=== PATIENT | female | born 1955 | race Caucasian/White ===

== ENCOUNTER 2020-07-29 14:11 | Emergency (ER) | payer MEDICARE, SELFPAY ==
[2020-07-29] VITALS (11 sets, daily range): BP systolic 160–201; BP diastolic 84–97; PULSE 82–113; RESP 20; TEMP 36.9; O2SAT 90–99
[2020-07-29 14:38] LABS: Bacteria Urine None Seen; RBC Urine None Seen (0-5/HPF)
[2020-07-29 14:53] LABS: Appearance Urine UA CLEAR; Bilirubin Urine UA NEGATIVE (NEGATIVE); Color Urine UA YELLOW; Glucose Urine UA NEGATIVE (Negative); Ketones Urine UA NEGATIVE (NEGATIVE); Leukocyte Esterase Urine UA NEGATIVE (NEGATIVE); Nitrite Urine UA NEGATIVE (Negative); Occult Blood Urine UA NEGATIVE (Negative); Protein Urine UA NEGATIVE (Negative); Urobilinogen Urine UA 0.2 E.U./dL (0.2)
[2020-07-29 15:08] LABS: Culture Indicated Urine Cult Not Indicated; Squamous Epithelial Cell Urine 0-1 /HPF (0-5/HPF); WBC Urine 0-1/HPF (0-5/HPF)
--- NOTE | 2020-07-29 16:36 | DI.CT.S_ITS ---
PROCEDURE: CT KIDNEY URETER BLADDER (KUB) INDICATIONS: R flank pain TECHNIQUE: Noncontrast 5 mm thick sections acquired from the diaphragms to the symphysis. 5 mm thick coronal and sagittal reformats were then performed. For radiation dose reduction, the following was used: automated exposure control, adjustment of mA and/or kV according to patient size. COMPARISON: None. FINDINGS: Image quality: Excellent. Lung bases: Lung bases are clear. Heart size is normal. There is a moderate sized hiatal hernia. Urinary system: Both kidneys are normal in size. No kidney stones. No hydronephrosis or perinephric fat stranding. Both ureters appear non-dilated throughout their expected courses. Bladder wall thickness is normal; no calcified bladder stones. Other solid organs: Liver is normal in size. Gallbladder is normal. Pancreas is normal in contours. Spleen is normal in size. No adrenal nodules. Peritoneum and bowel: Unenhanced bowel loops demonstrate normal wall thickness and caliber. Scattered colonic diverticula. No CT findings to suggest acute diverticulitis. No free fluid or air. Nodes and vessels: No retroperitoneal or mesenteric adenopathy by size criteria. Aorta and inferior vena cava are normal in caliber. Abdominal wall: No ventral hernias. Pelvis: Uterus is absent. There is a calcific density projecting to the right ovary. Left ovary is unremarkable. No free pelvic fluid. No inguinal hernias or adenopathy. Bones: No suspicious bony lesions. No vertebral body compression fractures. Moderate to severe degenerative disc and facet disease in the lower thoracic and lumbar spine. There is an intra osseous hemangioma in L3. IMPRESSION: 1. No renal stone or hydronephrosis. 2. Normal appendix. 3. Moderate-sized hiatal hernia. 4. Diverticulosis without diverticulitis. 5. Moderate to severe degenerative disc and facet disease in the lower thoracic and lumbar spine. Dictated by: Enrico Cheng M.D. on 07/29/2020 at 17:17 Approved by: Enrico Cheng M.D. on 07/29/2020 at 17:23
[2020-07-29 16:53] LABS: Add Manual Diff / Slide Review NO; Basophils Absolute Auto 0 /uL (0-100); Basophils Percent Auto 0.4 % (0-2); Eosinophils Absolute Auto 0 /uL (0-450); Hematocrit 46.2 % (36-46); Hemoglobin 15.2 g/dL (12.0-16.0); Lymphocytes Absolute Auto 1000 /uL (1100-4500); Lymphocytes Percent Auto 9.1 % (25-40); Mean Corpuscular Hemoglobin 30.7 PG (26-34); Mean Corpuscular Volume 93.3 fL (80-100); Monocytes Absolute Auto 300 /uL (0-900); Monocytes Percent Auto 2.6 % (3-14); Neutrophils Absolute Auto 10100 /uL (1500-7000); Neutrophils Percent Auto 87.9 % (50-75); Platelet Count 249 X10^3/uL (150-400); Red Blood Cell Count 4.95 X10^6/uL (4.0-5.2); Red Cell Distribution Width 14.1 % (11.6-14.8); White Blood Cell Count 11.5 X10^3/uL (4.5-11.0)
[2020-07-29 17:05] LABS: Lactate (Lactic Acid) 1.8 mmol/L (0.7-2.1)
[2020-07-29 17:06] LABS: Alanine Aminotransferase 42 IU/L (<35); Albumin 4.4 g/dL (3.5-5.0); Albumin Globulin Ratio 1.3 (1.0-2.8); Alkaline Phosphatase 73 U/L (38-126); Amylase 76 U/L (30-110); Aspartate Aminotransferase 33 IU/L (14-36); BUN Creatinine Ratio 25.9 (6-22); Bilirubin Total 1.3 mg/dL (0.2-1.3); Blood Urea Nitrogen 22 mg/dL (7-17); Calcium 9.9 mg/dL (8.4-10.2); Carbon Dioxide 35 mmol/L (22-32); Chloride 94 mmol/L (98-107); Estimated Glomerular Filt Rate > 60.0 mL/min (>60); Globulin 3.4 g/dL (1.7-4.1); Glucose 137 mg/dL (80-110); HEMOLYSIS < 15 (0-50); Lipase 20 U/L (23-300); Sodium 135 mmol/L (137-145); Total Protein 7.8 g/dL (6.3-8.2)
[2020-07-29] MEDS: CYCLOBENZAPRINE 10 MG TABLET PO (17:55)
[2020-07-29] MEDS: LIDOCAINE PATCH 1 EACH ADH..PATCH TOP (17:56)
--- NOTE | 2020-07-29 20:40 | ED_ITS ---
HPI - Female Genitourinary <GABRIELE Barnett - Last Filed: 07/29/20 20:44> General Chief complaint: Urogenital-Female Stated complaint: possible UTI since today Time Seen by Provider: 07/29/20 15:49 Source: patient and family Mode of arrival: Ambulatory Limitations: no limitations History of Present Illness HPI Narrative: The patient is a 64-year-old female nonsmoker who presents with her for chief complaint of right-sided flank pain. This is similar to her previous presentation where she was found have urinary tract infection down in [place] several weeks ago. She denies any fevers nausea vomiting or diarrhea. She does complain of some urinary urgency, but no dysuria. She has slight frequency as well with also been ongoing problem for several years. She denies any abdominal pain, chest pain or shortness of breath. She has not taken anything to feel better. She is mostly concerned about her kidney function. She is also concerned about the possibility of a kidney stone. She denies any hematuria. The patient is currently being treated for giant cell arteritis, is concerned about kidney function. Related Data Previous Rx's Medication Instructions Recorded cyclobenzaprine 10 mg PO TID PRN #14 tab 07/29/20 lidocaine 1 patch TOP DAILY PRN #15 each 07/29/20 Allergies Allergy/AdvReac Type Severity Reaction Status Date / Time Cephalosporins Allergy Verified 07/29/20 14:20 Penicillins Allergy Verified 07/29/20 14:20 Review of Systems <[facility] - Last Filed: 07/29/20 20:44> Review of Systems Narrative: GENERAL: Denies chills, fatigue, malaise, fever, sweats. HEENT: Denies sinus pain, ear pain, sore throat, difficulty swallowing, dizziness. RESPIRATORY: Denies dyspnea, cough, wheezing, hemoptysis, sputum. CARDIOVASCULAR: Denies chest pain, palpitations, orthopnea, edema, GASTROINTESTINAL: see HPI : See HPI MUSCULOSKELETAL: denies weakness, joint pain, or bony pain SKIN: Denies rash, skin lesions, or other NEUROLOGIC: Denies weakness, headache, numbness, change in speech, confusion, seizures, incoordination. PSYCHIATRIC: No concerning psychosocial issues. 12 point review of systems is negative except for those stated above Patient History [facility] - Last Filed: 07/29/20 20:44> alcohol intake frequency: 0-2 drinks per day Exam <GREGG Barnett - Last Filed: 07/29/20 20:44> Narrative Exam Narrative: GENERAL: This is a well-nourished, well-developed patient, in no acute distress HEAD: Atraumatic. Normocephalic. No temporal or scalp tenderness. EYES: Pupils equal round and reactive. Extraocular motions intact. No scleral icterus. No injection or drainage. ENT: Nose without bleeding, purulent drainage or septal hematoma. Wearing a mask. Airway patent. NECK: Trachea midline. No JVD or lymphadenopathy. Supple, nontender, no meningeal signs. CARDIOVASCULAR: Regular rate and rhythm \ RESPIRATORY: Clear to auscultation. Breath sounds equal bilaterally. No wheezes, rales, or rhonchi. No cough. No increased respiratory effort. No accessory muscle use. GASTROINTESTINAL: Abdomen soft, non-tender, nondistended. No hepato- splenomegaly, or palpable masses. No guarding. EXTREMITIES: No clubbing, cyanosis, or edema. No joint tenderness, effusion, or edema noted. BACK: Nontender without deformity or crepitance. Slight flank tenderness on right side, no CVA tenderness left side NEURO: AOx3. SKIN: No rash or erythema on visible skin. No rash erythema noted on back or flank. Initial Vital Signs Initial Vital Signs: Vital Signs Temperature 98.5 F 07/29/20 14:14 Pulse Rate 83 07/29/20 14:14 Respiratory Rate 07/29/20 14:14 Blood Pressure 170/90 H 07/29/20 14:14 Pulse Oximetry 99 07/29/20 14:14 <Dasia Drummond MD - Last Filed: 07/30/20 11:02> Initial Vital Signs Initial Vital Signs: Vital Signs Temperature 98.5 F 07/29/20 14:14 Pulse Rate 83 07/29/20 14:14 Respiratory Rate 07/29/20 14:14 Blood Pressure 170/90 H 07/29/20 14:14 Pulse Oximetry 99 07/29/20 14:14 Scores <GREGG Barnett - Last Filed: 07/29/20 20:44> GCS Dionicio coma scale eye opening: Spontaneous Dionicio coma scale verbal response: Orientated Dionicio coma scale motor response: Obey commands [place] coma scale total score: 15 Course <KIRIT Barnett-BC - Last Filed: 07/29/20 20:44> Orders Ordered: Discontinued Medications Cyclobenzaprine HCl (Flexeril) 10 mg PO NOW ONE Stop: 07/29/20 17:44 Last Admin: 07/29/20 17:55 Dose: 10 mg Documented by: MARTA Ketorolac Tromethamine (Toradol) 30 mg IM NOW ONE Stop: 07/29/20 17:40 Last Admin: 07/29/20 17:56 Dose: Not Given Documented by: MARTA Lidocaine (Lidoderm) 1 each TOP NOW ONE Stop: 07/29/20 17:40 Last Admin: 07/29/20 17:56 Dose: 1 each Documented by: MARTA Vital Signs Vital signs: Vital Signs - 8 hr 07/29/20 14:14 07/29/20 15:27 07/29/20 15:28 Temperature 98.5 F Pulse Rate 83 92 H 84 Respiratory Rate 20 Blood Pressure 170/90 H 172/84 H Pulse Oximetry 99 98 98 07/29/20 15:30 07/29/20 16:00 07/29/20 16:30 Temperature Pulse Rate 84 82 89 Respiratory Rate Blood Pressure Pulse Oximetry 97 96 97 07/29/20 17:01 07/29/20 17:30 07/29/20 17:56 Temperature Pulse Rate 113 H 89 95 H Respiratory Rate Blood Pressure 201/97 H Pulse Oximetry 90 L 96 98 07/29/20 18:00 07/29/20 18:30 Temperature Pulse Rate 91 H 88 Respiratory Rate Blood Pressure 171/88 H 160/88 H Pulse Oximetry 99 97 <Dasia Drummond MD - Last Filed: 07/30/20 11:02> Orders Ordered: Discontinued Medications Cyclobenzaprine HCl (Flexeril) 10 mg PO NOW ONE Stop: 07/29/20 17:44 Last Admin: 07/29/20 17:55 Dose: 10 mg Documented by: MARTA Ketorolac Tromethamine (Toradol) 30 mg IM NOW ONE Stop: 07/29/20 17:40 Last Admin: 07/29/20 17:56 Dose: Not Given Documented by: MARTA Lidocaine (Lidoderm) 1 each TOP NOW ONE Stop: 07/29/20 17:40 Last Admin: 07/29/20 17:56 Dose: 1 each Documented by: MARTA Vital Signs Vital signs: Vital Signs - 8 hr 07/29/20 14:14 07/29/20 15:27 07/29/20 15:28 Temperature 98.5 F Pulse Rate 83 92 H 84 Respiratory Rate 20 Blood Pressure 170/90 H 172/84 H Pulse Oximetry 99 98 98 07/29/20 15:30 07/29/20 16:00 07/29/20 16:30 Temperature Pulse Rate 84 82 89 Respiratory Rate Blood Pressure Pulse Oximetry 97 96 97 07/29/20 17:01 07/29/20 17:30 07/29/20 17:56 Temperature Pulse Rate 113 H 89 95 H Respiratory Rate Blood Pressure 201/97 H Pulse Oximetry 90 L 96 98 07/29/20 18:00 07/29/20 18:30 Temperature Pulse Rate 91 H 88 Respiratory Rate Blood Pressure 171/88 H 160/88 H Pulse Oximetry 99 97 MDM - Female Genitourinary <KIRIT Barnett- - Last Filed: 07/29/20 20:44> Lab Data Attestation: I reviewed the patient's lab results. Result diagrams: 07/29/20 16:47 07/29/20 16:47 Labs: Lab Results 07/29/20 07/29/20 07/29/20 Range/Units 14:37 16:47 16:47 WBC 11.5 H (4.5-11.0) X10^3/uL RBC 4.95 (4.0-5.2) X10^6/uL Hgb 15.2 (12.0-16.0) g/dL Hct 46.2 H (36-46) % MCV 93.3 (80-100) fL MCH 30.7 (26-34) PG MCHC 33.0 (30-36) % RDW 14.1 (11.6-14.8) % Plt Count 249 (150-400) X10^3/uL Neut % (Auto) 87.9 H (50-75) % Lymph % (Auto) 9.1 L (25-40) % [place] % (Auto) 2.6 L (3-14) % Eos % (Auto) 0.0 L (2-4) % Baso % (Auto) 0.4 (0-2) % Neut # (Auto) 46129 H (7218-5466) /uL Lymph # (Auto) 1000 L (7828-2294) /uL [place] # (Auto) 300 (0-900) /uL Eos # (Auto) 0 (0-450) /uL Baso # (Auto) 0 (0-100) /uL Sodium 135 L (137-145) mmol/L Potassium 4.0 (3.4-5.1) mmol/L Chloride 94 L (98-107) mmol/L Carbon Dioxide 35 H (22-32) mmol/L BUN 22 H (7-17) mg/dL Creatinine 0.85 (0.52-1.04) mg/dL Estimated GFR > 60.0 (>60) mL/min BUN/Creatinine Ratio 25.9 H (6-22) Glucose 137 H (80-110) mg/dL Lactate (0.7-2.1) mmol/L Calcium 9.9 (8.4-10.2) mg/dL Total Bilirubin 1.3 (0.2-1.3) mg/dL AST 33 (14-36) IU/L ALT 42 H (<35) IU/L Alkaline Phosphatase 73 (38-126) U/L Total Protein 7.8 (6.3-8.2) g/dL Albumin 4.4 (3.5-5.0) g/dL Globulin 3.4 (1.7-4.1) g/dL Albumin/Globulin Ratio 1.3 (1.0-2.8) Amylase 76 (30-110) U/L Lipase 20 L (23-300) U/L Urine Color Yellow Urine Appearance Clear Urine pH 7.0 (4.5-8.0) Ur Specific [place] 1.010 (1.000-1.035) Urine Protein Negative (Negative) Urine Glucose (UA) Negative (Negative) g/dL Urine Ketones Negative (NEGATIVE) Urine Occult Blood Negative (Negative) Urine Nitrate Negative (Negative) Urine Bilirubin Negative (NEGATIVE) Urine Urobilinogen 0.2 (0.2) E.U./dL Ur Leukocyte Esterase Negative (NEGATIVE) Urine RBC None seen (0-5/HPF) Urine WBC 0-1/hpf (0-5/HPF) Ur Squamous Epith Cells 0-1 /hpf (0-5/HPF) Urine Bacteria None seen (None) Ur Culture Indicated? Cult not indicated 07/29/20 Range/Units 16:47 WBC (4.5-11.0) X10^3/uL RBC (4.0-5.2) X10^6/uL Hgb (12.0-16.0) g/dL Hct (36-46) % MCV (80-100) fL MCH (26-34) PG MCHC (30-36) % RDW (11.6-14.8) % Plt Count (150-400) X10^3/uL Neut % (Auto) (50-75) % Lymph % (Auto) (25-40) % [place] % (Auto) (3-14) % Eos % (Auto) (2-4) % Baso % (Auto) (0-2) % Neut # (Auto) (0192-8528) /uL Lymph # (Auto) (4437-5779) /uL [place] # (Auto) (0-900) /uL Eos # (Auto) (0-450) /uL Baso # (Auto) (0-100) /uL Sodium (137-145) mmol/L Potassium (3.4-5.1) mmol/L Chloride (98-107) mmol/L Carbon Dioxide (22-32) mmol/L BUN (7-17) mg/dL Creatinine (0.52-1.04) mg/dL Estimated GFR (>60) mL/min BUN/Creatinine Ratio (6-22) Glucose (80-110) mg/dL Lactate 1.8 (0.7-2.1) mmol/L Calcium (8.4-10.2) mg/dL Total Bilirubin (0.2-1.3) mg/dL AST (14-36) IU/L ALT (<35) IU/L Alkaline Phosphatase (38-126) U/L Total Protein (6.3-8.2) g/dL Albumin (3.5-5.0) g/dL Globulin (1.7-4.1) g/dL Albumin/Globulin Ratio (1.0-2.8) Amylase (30-110) U/L Lipase (23-300) U/L Urine Color Urine Appearance Urine pH (4.5-8.0) Ur Specific [place] (1.000-1.035) Urine Protein (Negative) Urine Glucose (UA) (Negative) g/dL Urine Ketones (NEGATIVE) Urine Occult Blood (Negative) Urine Nitrate (Negative) Urine Bilirubin (NEGATIVE) Urine Urobilinogen (0.2) E.U./dL Ur Leukocyte Esterase (NEGATIVE) Urine RBC (0-5/HPF) Urine WBC (0-5/HPF) Ur Squamous Epith Cells (0-5/HPF) Urine Bacteria (None) Ur Culture Indicated? Imaging Data CT scan - abdomen/pelvis: Radiologist's Impression: [address] [place] [id number] Scan Report Signed Patient: Jonnie Viera#: [id number] : 8Acct:[id number] Age/Sex: 64 / FDate of Service: 07/29/20 Loc: ED Accession Number: [id number] Procedure: CT kidney ureter bladder (KUB) Ordering Provider: Lena Gramajo [employer]- PROCEDURE: CT KIDNEY URETER BLADDER (KUB) INDICATIONS: R flank pain TECHNIQUE: Noncontrast 5 mm thick sections acquired from the diaphragms to the symphysis. 5 mm thick coronal and sagittal reformats were then performed. For radiation dose reduction, the following was used: automated exposure control, adjustment of mA and/or kV according to patient size. COMPARISON: None. FINDINGS: Image quality: Excellent. Lung bases: Lung bases are clear. Heart size is normal. There is a moderate sized hiatal hernia. Urinary system: Both kidneys are normal in size. No kidney stones. No hydronephrosis or perinephric fat stranding. Both ureters appear non-dilated throughout their expected courses. Bladder wall thickness is normal; no calcified bladder stones. Other solid organs: Liver is normal in size. Gallbladder is normal. Pancreas is normal in contours. Spleen is normal in size. No adrenal nodules. Peritoneum and bowel: Unenhanced bowel loops demonstrate normal wall thickness and caliber. Scattered colonic diverticula. No CT findings to suggest acute diverticulitis. No free fluid or air. Nodes and vessels: No retroperitoneal or mesenteric adenopathy by size criteria. Aorta and inferior vena cava are normal in caliber. Abdominal wall: No ventral hernias. Pelvis: Uterus is absent. There is a calcific density projecting to the right ovary. Left ovary is unremarkable. No free pelvic fluid. No inguinal hernias or adenopathy. Bones: No suspicious bony lesions. No vertebral body compression fractures. Moderate to severe degenerative disc and facet disease in the lower thoracic and lumbar spine. There is an intra osseous hemangioma in L3. IMPRESSION: 1. No renal stone or hydronephrosis. 2. Normal appendix. 3. Moderate-sized hiatal hernia. 4. Diverticulosis without diverticulitis. 5. Moderate to severe degenerative disc and facet disease in the lower thoracic and lumbar spine. Dictated by: Enrico Cheng M.D. on 07/29/2020 at 17:17 Approved by: Enrico Cheng M.D. on 07/29/2020 at 17:23 [facility] Narrative Medical decision making narrative: The patient is a 64-year-old female who presents with a chief complaint of right-sided flank pain and concern about her kidney function your tract infection. Urine has no signs of infection. Patient's kidney function is very good. CT KUB shows no evidence of stone. Did discuss degenerative disc disease, intraosseous hemangioma, encouraged primary care follow-up. The patient feels much improved after the above-stated therapies I did give her prescriptions of lidocaine as well as muscle relaxers. Patient has no questions or concerns upon discharge and states understanding return precautions as well as follow-up care. Did discuss significant return precautions for spinal issues including incontinence of bowel, incontinence of bladder numbness in her groin. Patient has been hemodynamically stable, well- appearing and well acting throughout her stay in the emergency department. She expresses great appreciation for her care today. <Dasia Drummond MD - Last Filed: 07/30/20 11:02> Lab Data Labs: Lab Results 07/29/20 07/29/20 07/29/20 Range/Units 14:37 16:47 16:47 WBC 11.5 H (4.5-11.0) X10^3/uL RBC 4.95 (4.0-5.2) X10^6/uL Hgb 15.2 (12.0-16.0) g/dL Hct 46.2 H (36-46) % MCV 93.3 (80-100) fL MCH 30.7 (26-34) PG MCHC 33.0 (30-36) % RDW 14.1 (11.6-14.8) % Plt Count 249 (150-400) X10^3/uL Neut % (Auto) 87.9 H (50-75) % Lymph % (Auto) 9.1 L (25-40) % [place] % (Auto) 2.6 L (3-14) % Eos % (Auto) 0.0 L (2-4) % Baso % (Auto) 0.4 (0-2) % Neut # (Auto) 42444 H (9259-1275) /uL Lymph # (Auto) 1000 L (6799-9914) /uL [place] # (Auto) 300 (0-900) /uL Eos # (Auto) 0 (0-450) /uL Baso # (Auto) 0 (0-100) /uL Sodium 135 L (137-145) mmol/L Potassium 4.0 (3.4-5.1) mmol/L Chloride 94 L (98-107) mmol/L Carbon Dioxide 35 H (22-32) mmol/L BUN 22 H (7-17) mg/dL Creatinine 0.85 (0.52-1.04) mg/dL Estimated GFR > 60.0 (>60) mL/min BUN/Creatinine Ratio 25.9 H (6-22) Glucose 137 H (80-110) mg/dL Lactate (0.7-2.1) mmol/L Calcium 9.9 (8.4-10.2) mg/dL Total Bilirubin 1.3 (0.2-1.3) mg/dL AST 33 (14-36) IU/L ALT 42 H (<35) IU/L Alkaline Phosphatase 73 (38-126) U/L Total Protein 7.8 (6.3-8.2) g/dL Albumin 4.4 (3.5-5.0) g/dL Globulin 3.4 (1.7-4.1) g/dL Albumin/Globulin Ratio 1.3 (1.0-2.8) Amylase 76 (30-110) U/L Lipase 20 L (23-300) U/L Urine Color Yellow Urine Appearance Clear Urine pH 7.0 (4.5-8.0) Ur Specific [place] 1.010 (1.000-1.035) Urine Protein Negative (Negative) Urine Glucose (UA) Negative (Negative) g/dL Urine Ketones Negative (NEGATIVE) Urine Occult Blood Negative (Negative) Urine Nitrate Negative (Negative) Urine Bilirubin Negative (NEGATIVE) Urine Urobilinogen 0.2 (0.2) E.U./dL Ur Leukocyte Esterase Negative (NEGATIVE) Urine RBC None seen (0-5/HPF) Urine WBC 0-1/hpf (0-5/HPF) Ur Squamous Epith Cells 0-1 /hpf (0-5/HPF) Urine Bacteria None seen (None) Ur Culture Indicated? Cult not indicated 07/29/20 Range/Units 16:47 WBC (4.5-11.0) X10^3/uL RBC (4.0-5.2) X10^6/uL Hgb (12.0-16.0) g/dL Hct (36-46) % MCV (80-100) fL MCH (26-34) PG MCHC (30-36) % RDW (11.6-14.8) % Plt Count (150-400) X10^3/uL Neut % (Auto) (50-75) % Lymph % (Auto) (25-40) % [place] % (Auto) (3-14) % Eos % (Auto) (2-4) % Baso % (Auto) (0-2) % Neut # (Auto) (9733-8948) /uL Lymph # (Auto) (5217-2210) /uL [place] # (Auto) (0-900) /uL Eos # (Auto) (0-450) /uL Baso # (Auto) (0-100) /uL Sodium (137-145) mmol/L Potassium (3.4-5.1) mmol/L Chloride (98-107) mmol/L Carbon Dioxide (22-32) mmol/L BUN (7-17) mg/dL Creatinine (0.52-1.04) mg/dL Estimated GFR (>60) mL/min BUN/Creatinine Ratio (6-22) Glucose (80-110) mg/dL Lactate 1.8 (0.7-2.1) mmol/L Calcium (8.4-10.2) mg/dL Total Bilirubin (0.2-1.3) mg/dL AST (14-36) IU/L ALT (<35) IU/L Alkaline Phosphatase (38-126) U/L Total Protein (6.3-8.2) g/dL Albumin (3.5-5.0) g/dL Globulin (1.7-4.1) g/dL Albumin/Globulin Ratio (1.0-2.8) Amylase (30-110) U/L Lipase (23-300) U/L Urine Color Urine Appearance Urine pH (4.5-8.0) Ur Specific [place] (1.000-1.035) Urine Protein (Negative) Urine Glucose (UA) (Negative) g/dL Urine Ketones (NEGATIVE) Urine Occult Blood (Negative) Urine Nitrate (Negative) Urine Bilirubin (NEGATIVE) Urine Urobilinogen (0.2) E.U./dL Ur Leukocyte Esterase (NEGATIVE) Urine RBC (0-5/HPF) Urine WBC (0-5/HPF) Ur Squamous Epith Cells (0-5/HPF) Urine Bacteria (None) Ur Culture Indicated? Discharge Plan Departure Patient Disposition: Home Clinical Impression: Acute right flank pain Discharge Date/Time: 07/29/20 18:47 Instructions: DI for Flank Pain, DI for Muscle Spasm Activity Restrictions/Additional Instructions: Thank you for trusting us with your care today. As discussed, your kidney function is good in the CT revealed no evidence of kidney stones. You have responded well to medications that help relax muscles. I sent a prescription to [facility]. Please be aware can be sedating. Do not take and drive her take it with anything else sedating. As discussed, please follow-up with primary care provider the next few days. Please come back to emergency department for any acute concerns in the meantime. Since an acute spinal injury include new incontinence bowel, incontinence of bladder or numbness in her groin. Please come back to the emergency department if you have any concerning signs such as these. Prescriptions: New lidocaine 5 % adhesive patch,medicated 1 patch TOP DAILY PRN (Reason: pain ) Qty: 15 RF: 0 cyclobenzaprine 10 mg tablet 10 mg PO TID PRN (Reason: muscle spasm) Qty: 14 RF: 0 <Dasia Drummond MD - Last Filed: 07/30/20 11:02> Cosign ED Attending Cosignature Attestation: I was immediately available in the department for consultation throughout this patient's visit. I agree with documentation as above. Dasia Drummond MD
== END 2020-07-29 18:47 | disposition home or self-care (01) ==
PROVIDERS: Emergency Medicine; Emergency Provider Nurse Practitioner Family
DX: R10.9 Unspecified abdominal pain (principal); M62.838 Other muscle spasm
CPT/HCPCS: 36415; 74176; 80053; 81001; 82150; 83605; 83690; 85025; 99284

== ENCOUNTER → 2021-01-25 14:34 | Outpatient (CLI) | payer MEDICARE, SELFPAY ==
[2021-01-25 15:34] LABS: Alanine Aminotransferase 65 IU/L (<35); Albumin 4.5 g/dL (3.5-5.0); Albumin Globulin Ratio 1.6 (1.0-2.8); Alkaline Phosphatase 63 U/L (38-126); Aspartate Aminotransferase 44 IU/L (14-36); Bilirubin Total 1.2 mg/dL (0.2-1.3); Blood Urea Nitrogen 18 mg/dL (7-17); Carbon Dioxide 28 mmol/L (22-32); Chloride 100 mmol/L (98-107); Estimated Glomerular Filt Rate > 60.0 mL/min (>60); Globulin 2.8 g/dL (1.7-4.1); Glucose 77 mg/dL (80-110); HEMOLYSIS 23 (0-50); Potassium 3.7 mmol/L (3.4-5.1); Sodium 135 mmol/L (137-145); Total Protein 7.3 g/dL (6.3-8.2)
[2021-01-25 15:39] LABS: High Sensitivity CRP - Cardiac < 0.3 mg/L (1.0-3.0)
[2021-01-25 15:40] LABS: Add Manual Diff / Slide Review NO; Basophils Absolute Auto 100 /uL (0-100); Basophils Percent Auto 0.7 % (0-2); Eosinophils Absolute Auto 300 /uL (0-450); Eosinophils Percent Auto 3.5 % (2-4); Hematocrit 44.1 % (36-46); Hemoglobin 15.1 g/dL (12.0-16.0); Lymphocytes Absolute Auto 2100 /uL (1100-4500); Lymphocytes Percent Auto 21.6 % (25-40); Mean Corpuscular HGB Conc 34.2 % (30-36); Mean Corpuscular Hemoglobin 33.5 PG (26-34); Monocytes Absolute Auto 1100 /uL (0-900); Monocytes Percent Auto 11.5 % (3-14); Neutrophils Absolute Auto 6100 /uL (1500-7000); Neutrophils Percent Auto 62.7 % (50-75); Platelet Count 205 X10^3/uL (150-400); White Blood Cell Count 9.7 X10^3/uL (4.5-11.0)
[2021-01-25 15:59] LABS: Erythrocyte Sedimentation Rate 2 MM/HR (0-20)
== END ==
PROVIDERS: Referring Provider Internal Medicine; Visit Provider Internal Medicine
DX: M31.6 Other giant cell arteritis (principal); Z79.52 Long term (current) use of systemic steroids; Z79.899 Other long term (current) drug therapy
CPT/HCPCS: 36415; 80053; 85025; 85651; 86140